=== PATIENT | female | born 1955 | race Caucasian/White ===

== ENCOUNTER 2020-10-21 08:59 | Emergency (ER) | payer MEDICAID, SELFPAY ==
--- NOTE | 2020-10-21 09:07 | ECG_ITS ---
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 Measurements Intervals Petros Rate: 94 P: 11 CO: 148 QRS: -9 QRSD: 89 T: 23 QT: 358 QTc: 449 Interpretive Statements SINUS RHYTHM MODERATE VOLTAGE CRITERIA FOR LVH, CONSIDER NORMAL VARIANT [MEETS CRITERIA IN ONE OF: R(aVL), S(V1), R(V5), R(V5/V6)+S(V1)] POSSIBLE ANTERIOR MYOCARDIAL INFARCTION [30 ms Q WAVE IN V3/V4, OR R < 0.2 mV IN V4], OF INDETERMINATE AGE INFERIOR MYOCARDIAL INFARCTION [40+ ms Q WAVE AND/OR ST/T ABNORMALITY IN II/aVF], PROBABLY OLD Compared to ECG 08/23/2018 17:05:49 No significant changes Electronically Signed On 10-21-2020 21:08:38 CDT by Katherine Samayoa M.D. [id number]
--- NOTE | 2020-10-21 09:09 | W.ED.GENADLT ---
HPI - General Adult General: Chief complaint: Dizziness Stated complaint: DIZZY; FALL Time Seen by Provider: 10/21/20 09:02 History of Present Illness: HPI narrative: This patient is a 65-year-old female who presents to the emergency department for dizziness this morning. Patient has a long history of dizziness and vertigo and takes meclizine daily for the same. Patient has not taken her medication since last night patient states that she got a little upset this morning because she found out her son's cancer had returned and stated got upset and caused her to get dizzy. Patient was brought to the emergency department. Patient has no specific complaints other than the dizziness that she has chronically. Do medical screening exam and evaluate treat further as needed. Associated symptoms: Deny chest pain, dyspnea, headache(s), nausea, rash, palpitations or vomiting Review of Systems General: Reports: 10 or more systems reviewed and unremarkable except in HPI and below Const: Denies: fever(s), chills, body aches or fatigue Eyes: Denies: change in vision or blurry vision ENMT: Denies: throat pain, hoarseness or mouth pain Card: Denies: chest pain, palpitations, irregular heart rhythm, edema, swelling of feet/ankles or lightheadedness Resp: Denies: dyspnea, productive cough, non-productive cough, wheezing or pain on inspiration GI: Denies: abdominal pain, nausea or vomiting : Denies: flank pain, difficulty voiding, dysuria, urinary frequency, urinary urgency or urinary hesitancy Musc: Denies: neck pain, back pain, extremity pain, extremity swelling, joint pain, joint swelling, joint redness, joint warmth or limited range of motion Skin/Breast: Denies: rash, pruritus, erythema or skin tenderness Neuro: Reports: dizziness; Denies: headache(s), numbness in extremities or weakness in extremities Psych: Denies: anxiety or depression PFSH ED PFSH: Medical History Anxiety HTN (hypertension) Family History Father Hypertension Mother Hypertension Social History Smoking and tobacco status: former smoker Quit status (tobacco): has quit using tobacco Second hand smoke exposure: No Alcohol intake: never Physical Exam Const: COMMON NORMALS: no acute distress, average body habitus, patient oriented x3, no limitations, healthy appearing, alert and well nourished HENMT: COMMON NORMALS: normocephalic, atraumatic, hearing grossly normal bilaterally, external ears normal, EAC's normal, TM's normal bilaterally, Normal external nose present, Normal nasal mucous membranes and turbinates present, moist oral mucous membranes, oropharynx normal, dentition normal and gingiva normal HEAD & SCALP: normocephalic and atraumatic NOSE: Normal external nose present and Normal nasal mucous membranes and turbinates present EXTERNAL EAR: Yes external ears normal EXTERNAL AUDITORY CANAL: EAC's normal TYMPANIC MEMBRANE: TM's normal bilaterally Neck/C-Spine: COMMON NORMALS: full ROM, no lymphadenopathy, supple, no meningeal signs, no JVD, Thyroid normal and No carotid bruits THYROID: Thyroid normal Chest: COMMONS NORMALS: normal inspection of the chest, normal palpation of entire chest wall, normal inspection of the breasts and normal palpation of the breasts Breast/axilla inspection: Yes normal inspection of the breasts BREAST/AXILLA PALPATION: Yes normal palpation of the breasts Resp: COMMON NORMALS: normal respiratory effort, No retractions, No use of accessory muscles, clear to auscultation bilaterally and percussion normal AUSCULTATION: clear to auscultation bilaterally PERCUSSION: percussion normal Cardio: COMMON NORMALS: no JVD, regular rate, regular rhythm, S1 normal heart sound present, S2 normal heart sound present, No gallops present (Cardio), No clicks present (Cardio), No murmurs present (Cardio), No rub (Cardio) and Peripheral pulses 2+ throughout RATE: regular rate RHYTHM: regular rhythm HEART SOUNDS: S1 normal heart sound present and S2 normal heart sound present PERIPHERAL PULSES: Peripheral pulses 2+ throughout GI: COMMON NORMALS: Normal to inspection, nondistended, normoactive bowel sounds present, Soft to palpation, non-tender, No hepatosplenomegaly present, no masses and no bruits PALPATION: Yes Soft to palpation and Yes No hepatosplenomegaly present Back/Pelvis: COMMON NORMALS: thoracic and lumbar spine normal to inspection, no thoracic nor lumbar tenderness, thoraco-lumbar ROM normal and straight leg raise negative bilaterally Extremity: COMMON NORMALS: normal to inspection, full ROM, capillary refill normal, no joint enlargement, no clubbing, cyanosis or edema, no calf tenderness and no pedal edema Neuro: COMMON NORMALS: patient oriented x3 SENSORIUM/ORIENTATION: Yes alert MENINGEAL SIGNS: Yes no meningeal signs Course Reevaluation(s): Reevaluation #1: Patient admits that she has been noncompliant with her home medications. She has been reluctant to take her home medications that she is prescribed for her chronic conditions. Nursing staff will give patient her home prescriptions as written by her PCP. Time: 09:25 Reevaluation #2: Patient stable chronic conditions appear to be stable she states she is much improved after taking her home medications. Patient missed that she has been noncompliant and states that she just forgets sometimes. We had a long discussion about her medication compliance. Patient states understanding will be discharged home with family. Patient is to follow-up with PCP in 2 to 3 days Time: 11:01 Vital Signs: Vital signs: Vital Signs Temperature 98.9 F 10/21/20 09:10 Pulse Rate 159 H 10/21/20 09:48 Respiratory Rate 20 H 10/21/20 09:10 Blood Pressure 158/101 10/21/20 10:38 Pulse Oximetry 96 10/21/20 09:10 MDM - General Adult MDM Narrative: Medical decision making narrative: This patient is a 65-year-old female who presents to the emergency department for dizziness this morning. Patient has a long history of dizziness and vertigo and takes meclizine daily for the same. Patient has not taken her medication since last night patient states that she got a little upset this morning because she found out her son's cancer had returned and stated got upset and caused her to get dizzy. Patient was brought to the emergency department. Patient has no specific complaints other than the dizziness that she has chronically. Patient admits that she has been noncompliant with her home medications. She has been reluctant to take her home medications that she is prescribed for her chronic conditions. Nursing staff will give patient her home prescriptions as written by her PCP Patient stable chronic conditions appear to be stable she states she is much improved after taking her home medications. Patient missed that she has been noncompliant and states that she just forgets sometimes. We had a long discussion about her medication compliance. Patient states understanding will be discharged home with family. Patient is to follow-up with PCP in 2 to 3 days Medical Records: Attestation: I reviewed the patient's medical records. Lab Data: Attestation: I reviewed the patient's lab results. Labs: Lab Results 10/21/20 10/21/20 10/21/20 Range/Units 09:30 09:30 10:07 WBC Cancelled 12.3 H Corrected WBC Cancelled RBC Cancelled 5.11 Hgb Cancelled 14.2 Hct Cancelled 45.6 MCV Cancelled 89.2 MCH Cancelled 27.8 L MCHC Cancelled 31.1 RDW Cancelled 16.4 H Plt Count Cancelled 258 MPV Cancelled 10.2 Gran % Cancelled Neut % (Auto) Cancelled 69.9 Lymph % (Auto) Cancelled 21.9 Hamilton % (Auto) Cancelled 6.9 Eos % (Auto) Cancelled 0.6 Baso % (Auto) Cancelled 0.4 Neut # (Auto) Cancelled 8.57 H Lymph # (Auto) Cancelled 2.7 Hamilton # (Auto) Cancelled 0.8 Eos # (Auto) Cancelled 0.1 Baso # (Auto) Cancelled 0.1 Absolute Gran (aut o) Cancelled Nucleated RBC % (a uto) Cancelled 0 Nucleated RBCs # Cancelled 0.0 Sodium 134 L (136-145) mmol/L Potassium 3.7 (3.5-5.1) mmol/L Chloride 100 (98-107) mmol/L Carbon Dioxide 22 (22-29) mmol/L Anion Gap 15.7 (5-19) BUN 12 (8-23) mg/dL Creatinine 0.7 (0.5-0.9) mg/dL GFR Calculation 84.0 L (90-130) mL/min Glucose 110 (65-115) mg/dL Calculated Osmolal ity 278 L (285-295) mOsm/k g Calcium 9.1 (8.5-10.5) mg/dL Total Bilirubin 0.3 (0.15-1.2) mg/dL AST 18 (0-32) U/L ALT 16 (0-33) U/L Alkaline Phosphata se 126 H (35-105) IU/L Total Protein 6.7 (6.6-8.7) g/dL Albumin 4.1 (3.5-5.2) g/dL Globulin 2.6 (1.3-4.6) g/dL Urine Color (Yellow) Urine Appearance (CLEAR) Urine pH (5-7) Ur Specific Gravit y (1.005-1.030) Urine Protein (Negative) Urine Glucose (UA) (Normal) Urine Ketones (Negative) Urine Blood (Negative) Urine Nitrate (Negative) Urine Bilirubin (Negative) Urine Urobilinogen (Negative) mg/dL Ur Leukocyte Mone ase (Negative) 10/21/20 Range/Units 10:30 WBC Corrected WBC RBC Hgb Hct MCV MCH MCHC RDW Plt Count MPV Gran % Neut % (Auto) Lymph % (Auto) Hamilton % (Auto) Eos % (Auto) Baso % (Auto) Neut # (Auto) Lymph # (Auto) Hamilton # (Auto) Eos # (Auto) Baso # (Auto) Absolute Gran (aut o) Nucleated RBC % (a uto) Nucleated RBCs # Sodium (136-145) mmol/L Potassium (3.5-5.1) mmol/L Chloride (98-107) mmol/L Carbon Dioxide (22-29) mmol/L Anion Gap (5-19) BUN (8-23) mg/dL Creatinine (0.5-0.9) mg/dL GFR Calculation (90-130) mL/min Glucose (65-115) mg/dL Calculated Osmolal ity (285-295) mOsm/k g Calcium (8.5-10.5) mg/dL Total Bilirubin (0.15-1.2) mg/dL AST (0-32) U/L ALT (0-33) U/L Alkaline Phosphata se (35-105) IU/L Total Protein (6.6-8.7) g/dL Albumin (3.5-5.2) g/dL Globulin (1.3-4.6) g/dL Urine Color Yellow (Yellow) Urine Appearance Clear (CLEAR) Urine pH 5 (5-7) Ur Specific Gravit y 1.020 (1.005-1.030) Urine Protein Neg (Negative) Urine Glucose (UA) Norm (Normal) Urine Ketones Negative (Negative) Urine Blood Neg (Negative) Urine Nitrate Negative (Negative) Urine Bilirubin 1+ H (Negative) Urine Urobilinogen Norm (Negative) mg/dL Ur Leukocyte Mone ase Negative (Negative) EKG Data^: EKG 1: Attestation: I personally reviewed and interpreted this EKG as follows: EKG interpretation date: 10/21/20 EKG interpretation time: 09:25 Prior EKG tracings: available for review Ischemic changes: non-specific ST-T wave changes Interpretation: Sinus rhythm heart rate 94 nonspecific EKG changes. Chronic abnormal EKG. No acute findings Discharge Plan Discharge Patient Disposition: Home Clinical Impression: Benign paroxysmal positional vertigo, Noncompliance with medication regimen, Hypertension Condition: Stable Prescriptions: No Action No Known Home Medications RF: 0 Discharge Orders: Discharge ED (Routine); Ordered 10/21/20 Ordered By: Raul Casper Discharge Diet: Advance as tolerated Discharge Activity: Resume usual activity Patient Instructions: Opioid Safety Activity Restrictions/Additional Instructions: Take medications as prescribed. Follow-up with your primary care physician in 2 to 3 days. Coding Level of Care Code ED Supervisor Of Guidance And Testing for Tonya Fwd Exam Comprehensive
[2020-10-21 09:10] VITALS: BP 173/104; PULSE 91; RESP 20; TEMP 37.2; O2SAT 96; BMI 40.2
[2020-10-21] MEDS: sodium chloride 0.9% 500 ML IV (09:43)
[2020-10-21] MEDS: meclizine 25 mg tablet PO (09:46)
[2020-10-21 09:48] VITALS: BP 154/109; BP 181/59; PULSE 159
[2020-10-21 09:54] LABS: Alanine Aminotransferase 16 U/L (0-33); Albumin Level 4.1 g/dL (3.5-5.2); Alkaline Phosphatase 126 IU/L (35-105); Aspartate Amino Transferase 18 U/L (0-32); Blood Urea Nitrogen 12 mg/dL (8-23); Calcium 9.1 mg/dL (8.5-10.5); Carbon Dioxide 22 mmol/L (22-29); Chloride 100 mmol/L (98-107); Globulin 2.6 g/dL (1.3-4.6); Glucose 110 mg/dL (65-115); Osmolality Calculated 278 mOsm/kg (285-295); Sodium 134 mmol/L (136-145); Total Bilirubin 0.3 mg/dL (0.15-1.2); Total Protein 6.7 g/dL (6.6-8.7)
[2020-10-21 09:58] LABS: Anion Gap 15.7 (5-19); Potassium 3.7 mmol/L (3.5-5.1)
[2020-10-21 10:17] LABS: Basophils # 0.1 10^3/uL (0.0-0.1); Basophils % 0.4 %; Eosinophils # 0.1 10^3/uL (0.0-0.8); Eosinophils % 0.6 %; Hematocrit 45.6 % (37.0-47.0); Hemoglobin 14.2 g/dL (11.5-15.3); Lymphocytes # 2.7 10^3/uL (0.8-4.8); Lymphocytes % 21.9 %; Mean Corpuscular HGB Conc 31.1 g/dL (30.0-36.0); Mean Corpuscular Hemoglobin 27.8 pg (28.0-34.0); Mean Corpuscular Volume 89.2 fL (81-99); Mean Platelet Volume 10.2 fL (7.4-10.4); Monocytes # 0.8 10^3/uL (0.2-0.9); Monocytes % 6.9 %; Neutrophils # 8.57 10^3/uL (1.8-7.7); Neutrophils % 69.9 %; Nucleated Red Blood Cells % 0 %; Platelet Count 258 10^3/cmm (130-400); Red Blood Count 5.11 10^6/uL (4.1-5.3); Red Cell Distribution Width 16.4 % (12.1-15.1); White Blood Count 12.3 10^3/uL (4.0-10.0)
[2020-10-21 10:37] VITALS: BP 158/110; BP 176/109
[2020-10-21 10:38] VITALS: BP 158/101
[2020-10-21 10:45] LABS: Add Urine Microscopic? NO; Charge for UA Resulting for Rev
[2020-10-21 10:48] LABS: Bilirubin Urine 1+ (Negative); Blood Urine Neg (Negative); Glucose Urine UA Norm (Normal); Ketones Urine Negative (Negative); Leukocyte Esterase Urine Negative (Negative); Nitrate Urine Negative (Negative); Protein Urine Neg (Negative); Urine Appearance Clear (CLEAR); Urine Color Yellow (Yellow); Urobilinogen Urine Norm (Negative); pH Urine 5 (5-7)
== END 2020-10-21 11:07 | disposition home or self-care (01) ==
PROVIDERS: Emergency Provider Emergency Medicine
DX: H81.10 Benign paroxysmal vertigo, unspecified ear (principal); I10 Essential (primary) hypertension; Z91.14 Patient's other noncompliance with medication regimen; Z87.891 Personal history of nicotine dependence
CPT/HCPCS: 36415; 80053; 81003; 85025; 93005; 96360; 99283; J7040; J8597